=== PATIENT | male | born 1970 | race Caucasian/White ===

== ENCOUNTER 2017-11-15 11:46 | Emergency (ER) | payer OTHER ==
[~2017-11-15] VITALS: Ht 177.8 cm; Wt 83.9 kg
[~2017-11-15 11:46] MED LIST: NORCO 5-325 TA1 EAC1 PO
[2017-11-15] MEDS ORDERED: TRAMADOL 50 MG50 MG PO (12:02)
[2017-11-15] MEDS ORDERED: GABAPENTIN 100100 MG PO (12:03)
[2017-11-15] MEDS ORDERED: KEFLEX500 M1 PO (12:12)
[2017-11-15] MEDS ORDERED: BACTRIM DS TAB1 EACH PO (12:12)
[2017-11-15 12:17] VITALS: BP 146/103
--- NOTE | 2017-11-16 11:01 | EKG ---
[place] [address] ELECTROCARDIOGRAM REPORT Name: MIRNA MCCORMACK JR 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1970 Requested By: Judd Kauffman Order Number: [id number] MD: Silvino Hooper Measurements Intervals [place] Rate: 121 P: 38 GA: 129 QRS: -26 QRSD: 88 T: 56 QT: 331 QTc: 470 Interpretive Statements Sinus tachycardia Abnormal R-wave progression, early transition Left ventricular hypertrophy No previous ECG available for comparison Electronically Signed On 11-16-2017 11:00:53 CDT by Silvino Hooper [email or web address] <ELECTRONICALLY SIGNED> By: Silvino Hooper MD, [facility] 11/16/17 1100 1151 1151 Silvino Hooper MD, FACC /EPI
== END 2017-11-15 12:21 | disposition left against medical advice (07) ==
LOC: M.ERS 11:46
DX: R07.89 Other chest pain (principal); F15.10 Other stimulant abuse, uncomplicated; L03.113 Cellulitis of right upper limb; Z88.0 Allergy status to penicillin; Z88.1 Allergy status to other antibiotic agents

== ENCOUNTER 2019-03-30 10:43 | Emergency (ER) | payer OTHER ==
[~2019-03-30 10:43] MED LIST changes: +BACTRIM DS TAB1 EACH PO; +GABAPENTIN 100100 MG PO; +KEFLEX500 M1 PO; +TRAMADOL 50 MG50 MG PO
== END 2019-03-30 10:51 | disposition home or self-care (01) ==
LOC: M.ERS 10:43
DX: Z53.21 Procedure and treatment not carried out due to patient leaving prior to being seen by health care provider (principal)

== ENCOUNTER 2020-09-08 12:30 | Emergency (ER) | payer OTHER ==
[~2020-09-08] VITALS: Ht 177.8 cm; Wt 90.7 kg
[2020-09-08] MEDS ORDERED: HYDROXYZINE HCL25 M2 PO (12:51)
[2020-09-08] MEDS ORDERED: PREDNISONE 10 M10 M1 PO (13:31)
[2020-09-08] MEDS ORDERED: DIPHENHIST50 MG PO (13:31)
[2020-09-08 14:01] VITALS: BP 135/88
== END 2020-09-08 14:02 | disposition home or self-care (01) ==
LOC: M.ERS 12:30
DX: L53.9 Erythematous condition, unspecified (principal); T78.49XA Other allergy, initial encounter; Z88.0 Allergy status to penicillin; Z88.1 Allergy status to other antibiotic agents; X58.XXXA Exposure to other specified factors, initial encounter

== ENCOUNTER 2021-02-20 11:38 | Emergency (ER) | payer OTHER ==
[~2021-02-20] VITALS: Ht 177.8 cm; Wt 90.7 kg
[~2021-02-20 11:38] MED LIST changes: +DIPHENHIST50 MG PO; +HYDROXYZINE HCL25 M2 PO; +PREDNISONE 10 M10 M1 PO
[2021-02-20 11:50] VITALS: BP 114/92
[2021-02-20 12:51] LABS: URINE BILIRUBIN NEGATIVE (Negative); URINE BLOOD NEGATIVE (Negative); URINE CLARITY CLEAR; URINE COLOR YELLOW; URINE GLUCOSE-RANDOM NEGATIVE (Negative); URINE KETONES NEGATIVE (Negative); URINE LEUKOCYTES NEGATIVE (Negative); URINE NITRITE NEGATIVE (Negative); URINE PROTEIN TRACE (Negative); URINE SPECIFIC GRAVITY >= 1.030 (1.005-1.030); URINE UROBILINOGEN 0.2 E.U./dl (0.2-1.0)
[2021-02-20 12:58] LABS: INFLUENZA A ANTIGEN Negative (Negative); INFLUENZA B ANTIGEN Negative (Negative)
[2021-02-20] MEDS ORDERED: FLEXERIL PO (13:13)
[2021-02-20] MEDS ORDERED: PROAIR HFA8.5 GM INH (13:13)
[2021-02-21] MEDS ORDERED: MOBIC7.5 MG PO (10:22)
[2021-02-21] MEDS ORDERED: MEDROLDOSEPACK PO (10:22)
[2021-02-21] MEDS ORDERED: FLEXERIL PO (10:22)
== END 2021-02-20 13:22 | disposition home or self-care (01) ==
LOC: M.ERS 11:38
PROVIDERS: Physician Assistant
DX: U07.1 COVID-19 (principal); M79.18 Myalgia, other site; M19.90 Unspecified osteoarthritis, unspecified site; Z88.0 Allergy status to penicillin; Z88.1 Allergy status to other antibiotic agents; Z79.899 Other long term (current) drug therapy

== ENCOUNTER 2021-02-21 08:51 | Emergency (ER) | payer OTHER ==
[~2021-02-21] VITALS: Ht 177.8 cm; Wt 90.7 kg
[~2021-02-21 08:51] MED LIST changes: +FLEXERIL PO; +PROAIR HFA8.5 GM INH
[2021-02-21] MEDS ORDERED: MOBIC7.5 MG PO (10:22)
[2021-02-21] MEDS ORDERED: MEDROLDOSEPACK PO (10:22)
[2021-02-21] MEDS ORDERED: FLEXERIL PO (10:22)
[2021-02-21 10:42] VITALS: BP 120/70
== END 2021-02-21 10:42 | disposition home or self-care (01) ==
LOC: M.ERS 08:51
DX: M54.59 Other low back pain (principal); Z88.0 Allergy status to penicillin; Z88.8 Allergy status to other drugs, medicaments and biological substances

== ENCOUNTER 2021-04-19 11:34 | Emergency (ER) | payer OTHER ==
[~2021-04-19] VITALS: Ht 177.8 cm; Wt 90.7 kg
[~2021-04-19 11:34] MED LIST changes: +MEDROLDOSEPACK PO; +MOBIC7.5 MG PO
[2021-04-19 11:47] VITALS: BP 121/89
[2021-04-19] MEDS ORDERED: PROAIR HFA8.5 GM INH (11:58)
[2021-04-19] MEDS ORDERED: APAP W/CODEINE1 TA2 PO (11:58)
== END 2021-04-19 12:08 | disposition home or self-care (01) ==
LOC: M.ERS 11:34
DX: R50.9 Fever, unspecified (principal); Z20.822 Contact with and (suspected) exposure to COVID-19; R06.02 Shortness of breath; R51.9 Headache, unspecified; R43.8 Other disturbances of smell and taste; R05.9 Cough, unspecified; M19.90 Unspecified osteoarthritis, unspecified site; Z79.899 Other long term (current) drug therapy; Z88.0 Allergy status to penicillin; Z88.1 Allergy status to other antibiotic agents

== ENCOUNTER 2021-04-30 16:42 | Emergency (ER) | payer OTHER ==
[~2021-04-30] VITALS: Ht 177.8 cm; Wt 90.7 kg
[~2021-04-30 16:42] MED LIST changes: +APAP W/CODEINE1 TA2 PO
[2021-04-30 17:40] LABS: ABSOLUTE EOSINOPHILS 0.1 thou/uL (0.0-0.7); ABSOLUTE LYMPHOCYTES 2.7 thou/uL (0.8-5.3); BASOPHILS 0.3 %; EOSINOPHILS 0.9 %; HEMATOCRIT 49.2 % (42.0-52.0); HEMOGLOBIN 16.7 gm/dL (14.0-18.0); LYMPHOCYTES 25.2 %; MCH 29.6 pg (26.0-34.0); MONOCYTES 9.2 %; MPV 6.8 fl. (7.2-11.1); NUCLEATED RBCS 0 /100WBC; PLATELET COUNT* 296 thou/uL (150-400); POLYS 64.4 %; RBC 5.66 mil/uL (4.50-6.00); RDW-CV 14.7 % (10.5-14.5); WBC 10.8 thou/uL (4.0-11.0)
[2021-04-30 17:48] LABS: CALCIUM 9.6 mg/dL (8.5-10.1); CREATININE 0.9 mg/dL (0.6-1.3); POTASSIUM 3.9 mmol/L (3.5-5.1)
[2021-04-30 17:53] VITALS: BP 145/107
[2021-04-30 17:58] LABS: ALBUMIN 4.8 g/dL (3.4-5.0); MAGNESIUM 2.3 mg/dL (1.8-2.4); TOTAL BILIRUBIN 0.4 mg/dL (<0.1-1.0); TOTAL PROTEIN 8.6 g/dL (6.4-8.2)
--- NOTE | 2021-05-01 09:15 | EKG ---
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 : 1970 Requested By: Judd Kauffman Order Number: [id number] MD: Silvino Hooper Measurements Intervals [place] Rate: 96 P: 29 HI: 140 QRS: 7 QRSD: 82 T: 58 QT: 354 QTc: 448 Interpretive Statements Sinus rhythm Probable left atrial enlargement Baseline wander in lead(s) II Compared to ECG 11/15/2017 11:51:07 Sinus tachycardia no longer present Left ventricular hypertrophy no longer present Electronically Signed On 05-01-2021 8:58:07 [employer]PER[employer] by Silvino Hooper [email or web address] <ELECTRONICALLY SIGNED> By: Silvino Hooper MD, [facility] 05/01/21 0858 1649 1649 Silvino Hooper MD, [facility] /EPI
== END 2021-04-30 18:00 | disposition left against medical advice (07) ==
LOC: M.ERS 16:42
PROVIDERS: Family Medicine
DX: F41.9 Anxiety disorder, unspecified (principal); R07.89 Other chest pain; F17.210 Nicotine dependence, cigarettes, uncomplicated; Z88.0 Allergy status to penicillin; Z88.1 Allergy status to other antibiotic agents; M19.90 Unspecified osteoarthritis, unspecified site